=== PATIENT | female | born 1970 | race Caucasian/White ===

== ENCOUNTER 2019-06-18 20:30 | Outpatient (CLI) | payer OTHER | END 2019-06-18 20:31 | disposition home or self-care (01) | LOC: SLEEPLAB 20:30 | PROVIDERS: ATTEND Family Medicine | DX: G47.33 Obstructive sleep apnea (adult) (pediatric) (principal); K21.9 Gastro-esophageal reflux disease without esophagitis; G47.00 Insomnia, unspecified; G47.10 Hypersomnia, unspecified; R06.83 Snoring; J30.2 Other seasonal allergic rhinitis | CPT/HCPCS: 95810 ==

== ENCOUNTER 2019-07-24 09:32 | Day surgery (SDC) | payer OTHER ==
[2019-07-23 12:25] VITALS: BMI 34.0
[2019-07-24] MEDS ORDERED: PROPOFOL 200 MG/20 ML VIAL ONE (12:12)
--- NOTE | 2019-07-24 16:29 | OP ---
DATE OF PROCEDURE: 07/24/2019 PROCEDURES PERFORMED: 1. Esophagogastroduodenoscopy (diagnostic). 2. Colonoscopy with polypectomy and biopsy. INDICATIONS FOR PROCEDURE: GERD, screening for Colunga esophagus, personal history of colonic polyps, family history of colon cancer (brother diagnosed with colon cancer in his 40s). DESCRIPTION OF PROCEDURES: After the risks and benefits of the procedures were explained to the patient including risks of bleeding, infection, perforation, reactions to anesthesia, aspiration, and/or pain, informed consent was obtained. The patient was then taken to the endoscopy suite, where deep sedation was administered via propofol and anesthesia support. Once adequate sedation was achieved, the standard gastroscope was introduced into the mouth with intubation of the esophagus, stomach, and the proximal small intestines with the findings listed below. Upon completion of the upper endoscopy, all equipment was removed from the patient and the bed was rotated 180 degrees in anticipation of the colonoscopy. Once the patient was in adequate position, a digital rectal examination was performed followed by insertion of the standard colonoscope into the rectum with intubation of the colon and advanced to the terminal ileum without difficulty. The quality of the prep was good with a small amount of retained solid and liquid stool, that was amenable to irrigation and suctioning. The patient tolerated the procedure well with no immediate perioperative complications. Upon conclusion of the procedures, all equipment was removed from the patient and she was transferred to Day Stay in satisfactory condition. EGD FINDINGS: Esophagus: Normal-appearing mucosa was seen in the proximal, mid, and distal esophagus. The diaphragmatic pinch was seen at 40 cm while the gastroesophageal junction was seen at 38 cm, denoting a 2 cm hiatal hernia. However, there was no evidence of Colunga's type mucosa associated with this finding. Otherwise, there was no evidence of erosions, ulcerations, mass, lesions, or active/recent bleeding. Stomach: Normal-appearing mucosa was seen in the gastric cardia, fundus, body, greater curvature, antrum, and incisura. A small hiatal hernia was seen on gastric retroflexion. Otherwise, there was no evidence of erosions, ulcerations, mass, lesions, or active/recent bleeding. Duodenum: Normal-appearing mucosa was seen in both the duodenal bulb and second portion of the duodenum. There was no evidence of erosions, ulcerations, mass, lesions, or active/recent bleeding. IMPRESSION: 1. 2 cm hiatal hernia. 2. No evidence of erosive reflux disease or Colunga's type mucosa. COLONOSCOPY FINDINGS: Digital rectal exam: Small external hemorrhoids were seen on external examination. Colon findings: Normal-appearing mucosa was seen within the terminal ileum as well as at the appendiceal orifice and ileocecal valve. Normal-appearing mucosa was then seen in the cecum and ascending colons. A 3 to 4 mm polyp was seen in the transverse colon and completely removed with cold snare polypectomy. It was retrieved and placed in a specimen jar for evaluation. Normal-appearing mucosa was then seen within the descending colon; however,4 polyps were seen within the sigmoid colon, measuring between 2 and 4 mm in size. They were completely removed with a combination of cold snare polypectomy and Jumbo biopsy forceps. They were all retrieved and placed in a specimen jar for evaluation. Six polyps, measuring 3 to 5 mm in size, were seen in the rectum and completely removed with a combination of cold snare polypectomy and Jumbo biopsy forceps. They were retrieved and placed in a specimen jar for evaluation. Small internal hemorrhoids were seen on rectal retroflexion. IMPRESSION: 1. 3-4 mm transverse colon polyp status post cold snare polypectomy. 2. Four sigmoid colon polyps, measuring 3 to 4 mm, status post cold snare polypectomy and biopsy forceps. 3. Six rectal polyps, measuring 3-5 mm, status post cold snare polypectomy and biopsy forceps. 4. Internal and external hemorrhoids. RECOMMENDATIONS: 1. We will follow up on the biopsy results with repeat colonoscopy interval depending on pathology report. Given her personal history of polyps and the family history of colon cancer, this would be most likely in 3 years. 2. Would recommend a higher fiber diet given the presence of both internal and external hemorrhoids. 3. Continue current medications. 4. Would have the patient follow up in the [facility] in 6 weeks for re-evaluation of GERD and discussion regarding the biopsies/polyps removed today. Job ID: [id number]
== END 2019-07-24 14:35 | disposition home or self-care (01) ==
LOC: SDC 09:32
PROVIDERS: ATTEND Internal Medicine
PROC: 0DJ08ZZ Inspection of Upper Intestinal Tract, Via Natural or Artificial Opening Endoscopic (ICD-10-PCS; principal; 2019-07-24)
PROC: 0DBN8ZZ Excision of Sigmoid Colon, Via Natural or Artificial Opening Endoscopic (ICD-10-PCS; principal; 2019-07-24)
PROC: 0DBL8ZX Excision of Transverse Colon, Via Natural or Artificial Opening Endoscopic, Diagnostic (ICD-10-PCS; principal; 2019-07-24)
PROC: 0DBP8ZX Excision of Rectum, Via Natural or Artificial Opening Endoscopic, Diagnostic (ICD-10-PCS; principal; 2019-07-24)
PROC: 0DBN8ZX Excision of Sigmoid Colon, Via Natural or Artificial Opening Endoscopic, Diagnostic (ICD-10-PCS; principal; 2019-07-24)
DX: Z12.11 Encounter for screening for malignant neoplasm of colon (principal); D12.3 Benign neoplasm of transverse colon; K62.1 Rectal polyp; K44.9 Diaphragmatic hernia without obstruction or gangrene; K59.00 Constipation, unspecified; K21.9 Gastro-esophageal reflux disease without esophagitis; I10 Essential (primary) hypertension; E78.5 Hyperlipidemia, unspecified; G47.30 Sleep apnea, unspecified; F41.9 Anxiety disorder, unspecified; Z68.34 Body mass index [BMI] 34.0-34.9, adult; E66.9 Obesity, unspecified; Z86.010 Personal history of colon polyps; Z86.73 Personal history of transient ischemic attack (TIA), and cerebral infarction without residual deficits; Z80.0 Family history of malignant neoplasm of digestive organs; Z79.899 Other long term (current) drug therapy; Z88.0 Allergy status to penicillin; Z91.013 Allergy to seafood; Z91.040 Latex allergy status; K64.4 Residual hemorrhoidal skin tags; K64.8 Other hemorrhoids
CPT/HCPCS: 88305; J2704

== ENCOUNTER 2019-09-01 19:30 | Outpatient (CLI) | payer OTHER | END 2019-09-01 19:31 | disposition home or self-care (01) | LOC: SLEEPLAB 19:30 | PROVIDERS: ATTEND Family Medicine | DX: G47.33 Obstructive sleep apnea (adult) (pediatric) (principal); G47.00 Insomnia, unspecified; J30.9 Allergic rhinitis, unspecified; G47.10 Hypersomnia, unspecified; K21.9 Gastro-esophageal reflux disease without esophagitis | CPT/HCPCS: 95811 ==